=== PATIENT | male | born 1965 | race African-American/Black ===

== ENCOUNTER 2023-02-09 08:36 | Emergency (ER) | payer SELFPAY ==
[~2023-02-09] VITALS: Ht 172.7 cm; Wt 68.0 kg
[2023-02-09 09:02] VITALS: O2SAT 98
[2023-02-09] MEDS ORDERED: ASPIRIN 325MG EC TABLET PO ONE (09:30)
[2023-02-09 10:05] LABS: BASOPHILS % 1.5 % (0.0-2.0); DIFFERENTIAL COMMENT 0; EOSINOPHILS % 5.1 % (0.0-5.0); HEMATOCRIT. 39.6 % (42.0-52.0); HEMOGLOBIN. 13.3 g/dL (14.0-18.0); LYMPHOCYTES % 27.1 % (20.0-50.0); MEAN CORPUSCULAR HEMOGLOBIN 30.6 pg (28.0-32.0); MEAN CORPUSCULAR HGB CONC 33.5 g/dL (31.0-37.0); MEAN CORPUSCULAR VOLUME 91.5 fL (80.0-94.0); MONOCYTES % 7.8 % (2.0-8.0); NEUTROPHILS % 58.5 % (40.0-76.0); PLATELET 286 x1000/uL (130-400); RED BLOOD CELL COUNT 4.33 mill/uL (4.7-6.1); RED CELL DISTRIBUTION WIDTH 15.3 % (11.6-14.6); WHITE BLOOD COUNT 5.4 x1000/uL (4.5-11.0)
[2023-02-09 10:08] LABS: CHLORIDE 111 mEq/L (98-107); INDEX HEMOLYSI 1 (1-3); INDEX ICTERIC 1 (1-4); INDEX LIPEMIC 1 (1-3); POTASSIUM 3.9 mEq/L (3.5-5.1); SODIUM 142 mEq/L (136-145)
[2023-02-09 10:20] LABS: ALANINE AMINOTRANSFERASE 29 IU/L (13-61); ALBUMIN 3.4 g/dL (3.4-5.0); ASPARTATE AMINOTRANSFERASE 26 IU/L (15-37); BILIRUBIN TOTAL 0.6 mg/dL (0.1-1.0); CALCIUM 8.1 mg/dL (8.5-10.1); CARBON DIOXIDE 28 mEq/L (21-32); GLUCOSE 112 mg/dL (70-105); NT PRO B-TYPE NATRIURETIC PEP 62 pg/mL (5-125); TROPONIN I HIGH SENSITIVITY 7 ng/L (<78); UREA NITROGEN BLOOD 14 mg/dL (7-21)
[2023-02-09 12:13] LABS: TROPONIN I HIGH SENSITIVITY 9 ng/L (<78)
[2023-02-09 13:14] VITALS: BP 129/81; PULSE 74; RESP 18; TEMP 98.2
== END 2023-02-09 13:15 | disposition home or self-care (01) ==
LOC: ER 08:36
DX: R07.89 Other chest pain (principal)
CPT/HCPCS: 80053; 83880; 85025; 84484; 36415; 71045; 93005; 99285; Z7610